=== PATIENT | male | born 1990 | race Two or more races ===

== ENCOUNTER 2024-11-25 13:15 | Inpatient (IN) | payer OTHER ==
[~2024-11-25] VITALS: Ht 180.3 cm; Wt 74.8 kg
[2024-11-25] MEDS ORDERED: 0.9 % SODIUM CHLORIDE 1,000 ML IV SCH ×2 (13:30→21:00)
[2024-11-25] MEDS ORDERED: LORazepam 2 MG/ML VIAL IV ONE (13:30)
[2024-11-25] MEDS ORDERED: LevETIRAcetam 10 MG/ML REDILUIDO IV STA (13:31)
[2024-11-25 13:46] LABS: BASO % 0.5 % (0.1-1.2); EOS # 0.12 (0.04-0.54); EOS % 1.2 % (0.7-7.0); LYMPH # 1.31 (1.18-3.74); LYMPH % 13.4 % (19.3-53.1); MEAN PLATELET VOLUME 10.10 fl (9.4-12.4); MONO # 0.56 (0.24-0.82); MONO % 5.7 % (4.7-12.5); NEUT # 7.72 (1.56-6.13); NEUT % 79.0 % (34.0-71.1); RED CELL DISTRIBUTION WIDTH 10.8 % (11.6-14.4)
[2024-11-25 14:03] LABS: INR 1.06
[2024-11-25 14:08] LABS: ALT/SGPT 21.0 U/L (12-78); AST/SGOT 15.0 U/L (15-37); BILIRUBIN TOTAL 0.69 mg/dL (0.3-1.2); BUN CREA RATIO 18.0 (7.0-25.0); CREATININE SERUM 1.12 mg/dL (0.70-1.30); GFR 74.61; GLOBULINA 3.1 G/DL (2.4-3.5); GLUCOSE FASTING 89.0 mg/dL (65-100); LDH 147.0 U/L (87-241); OSMOLALITY SERUM 291.0 MOSM/KG (275-295); PHOSPHOKINASE CREATININE 115.0 U/L (39-308)
--- NOTE | 2024-11-25 14:10 | NUR ---
SE RECIBE PACIENTE EN AMBULANCIA. PARAMEDICOS INDICAN QUE EL PACIENTE A TENIDO VARIOS EPISODIOS DE CONVULCIONES. SE PROCEDE A PASAR A AREA DE CRITICO AL PACIENTE. SE CONECTA A MONITOR CARDIACO CON OXIMETRIA DE PULSO. SE REALIZA EKG AL PACIENTE. CAROLINE EVALUADO POR EL DR. FLYNN. SE PROCEDE A REALIZAR ORDENES DEL DR. LITA ESPINAL BAJO MEDIDAS ASEPTICAS Y FRANCIS ORDEN MEDICA.
[2024-11-25 14:21] LABS: COVID-19 AG NEGATIVE (NEGATIVE)
[2024-11-25 14:29] LABS: ABG PH 7.439 (7.35-7.45); ABG PO2 149.2 mmHg (80-100); BICARBONATE 26.3 mmol/l (23-25)
[2024-11-25 14:30] LABS: o2 32 %
--- NOTE | 2024-11-25 15:49 | NUR ---
SE RECIBE PTE ALERTA, ORIENTADO X3 EN YOMI #1 EN ICU. PTE EN CAMA ELEVADA CON BARANDAS ELEVADAS, CONECTADO A MONITOR CARDIACO Y OXIMETRIA. PTE REFIERE DOLOR ABDOMINAL. A LAS 1500 SE ADMINISTRAN MEDICAMENTOS FRANCIS ORDEN MEDICA BAJO MEDIDAS ASEPTICAS. PTE CON ANGIO #18 EN RA PATENTE LAVERNE DE EDEMAS Y ERITEMA CON 0.9 NSS BAJANDO A 120 ML/HR. SE OBSERVA PTE POR CAMBIOS.
[2024-11-25 16:43] VITALS: BP 106/54
[2024-11-25] MEDS ORDERED: POTASSIUM CHLORIDE 20MEQ/100ML H2O PB IV ONE (21:00)
[2024-11-25 21:54] LABS: ALT/SGPT 20.0 U/L (12-78); AST/SGOT 15.0 U/L (15-37); BILIRUBIN TOTAL 0.67 mg/dL (0.3-1.2); BILIRUBIN,CONJUGATED 0.16 mg/dL (0.0-0.2)
[2024-11-25 23:00] VITALS: BP 116/66; O2SAT 100
[2024-11-25 23:13] VITALS: BP 133/79; O2SAT 100
[2024-11-26 08:42] VITALS: BP 120/70; O2SAT 98
[2024-11-26 15:21] LABS: URINE APPEARANCE Clear; URINE BILIRRUBIN Negative (NEGATIVE); URINE BLOOD Negative; URINE COLOR Yellow; URINE GLUCOSE Negative (NEGATIVE); URINE KETONE Negative (NEGATIVE); URINE LEUKOCYTE Negative; URINE NITRATE Negative; URINE PROTEIN Negative (NEGATIVE); URINE UROBILINOGEN 1.0 E.U./dl
[2024-11-26 15:25] LABS: URINE BACTERIA 1.1 uL (0.0-1933); URINE CAST 0.00 uL (0.0-1.40); URINE EPITHELIAL CELLS 0.3 uL (0.0-38.8); URINE RBC 0.0 uL (0.0-20.8); URINE WBC 0.9 uL (0.0-23.2)
[2024-11-26 15:50] LABS: COCAINE NEGATIVE (NEGATIVE); METHADONE NEGATIVE (NEGATIVE); OPIATES NEGATIVE (NEGATIVE); THC ( Cannabinoids) POSITIVE (NEGATIVE)
[2024-11-26 17:22] VITALS: BP 143/78
[2024-11-26 23:00] VITALS: BP 111/86; O2SAT 99
[2024-11-27 08:58] VITALS: BP 120/77; O2SAT 99
[2024-11-27 17:27] VITALS: BP 121/73
[2024-11-28 02:21] VITALS: BP 109/71; O2SAT 99
[2024-11-28 08:44] VITALS: BP 123/61; O2SAT 98
== END 2024-11-28 14:50 | disposition home or self-care (01) | DRG 101 ==
LOC: ER 13:15 → SEC-K 20:56 → MEDI 20:56 → SEC-K 21:34 → MEDI 23:28
PROVIDERS: General Practice; ADMIT Student in an Organized Health Care Education/Training Program; ATTEND Student in an Organized Health Care Education/Training Program
PROC: B030ZZZ Magnetic Resonance Imaging (MRI) of Brain (ICD-10-PCS; principal; 2024-11-25)
PROC: B020ZZZ Computerized Tomography (CT Scan) of Brain (ICD-10-PCS; 2024-11-25)
PROC: 4A12X4Z Monitoring of Cardiac Electrical Activity, External Approach (ICD-10-PCS; 2024-11-27)
DX: R56.9 Unspecified convulsions (principal); R41.82 Altered mental status, unspecified
CPT/HCPCS: 70551

== ENCOUNTER 2024-12-07 10:28 | Emergency (ER) | payer OTHER ==
[~2024-12-07] VITALS: Ht 180.3 cm; Wt 73.9 kg
[2024-12-07 10:35] VITALS: BP 133/81; O2SAT 99
[2024-12-07] MEDS ORDERED: 0.9 % SODIUM CHLORIDE 1,000 ML IV STA (10:40)
[2024-12-07 11:20] LABS: BASO % 0.8 % (0.1-1.2); EOS # 0.08 (0.04-0.54); EOS % 1.0 % (0.7-7.0); LYMPH # 1.23 (1.18-3.74); LYMPH % 15.7 % (19.3-53.1); MEAN PLATELET VOLUME 10.10 fl (9.4-12.4); MONO # 0.39 (0.24-0.82); MONO % 5.0 % (4.7-12.5); NEUT # 6.04 (1.56-6.13); NEUT % 77.1 % (34.0-71.1); RED CELL DISTRIBUTION WIDTH 11.1 % (11.6-14.4)
[2024-12-07 12:18] LABS: ALT/SGPT 41.0 U/L (12-78); AST/SGOT 22.0 U/L (15-37); BILIRUBIN TOTAL 0.76 mg/dL (0.3-1.2); BUN CREA RATIO 22.0 (7.0-25.0); CREATININE SERUM 0.78 mg/dL (0.70-1.30); GFR 113.27; GLOBULINA 3.6 G/DL (2.4-3.5); GLUCOSE FASTING 72.0 mg/dL (65-100); OSMOLALITY SERUM 285.0 MOSM/KG (275-295); PHOSPHOKINASE CREATININE 137.0 U/L (39-308)
== END 2024-12-07 14:29 | disposition home or self-care (01) ==
LOC: ER 10:28
PROVIDERS: General Practice
DX: R42 Dizziness and giddiness (principal); R56.9 Unspecified convulsions